=== PATIENT | female | born 1985 | race Caucasian/White ===

== ENCOUNTER 2018-05-29 11:15 | Outpatient (RCR) | payer OTHER, SELFPAY ==
--- NOTE | 2018-05-10 14:00 | PT.OIE ---
Current Diagnoses Other specified disorders of muscle (05/10/18) Past Surgical History Status post appendectomy Provider Visit Care Team Role Provider Type Kate aGrcia MD Attending Provider Physician Primary Care Provider Specialty: Family Practice Address: [address] [place] [address], [facility] Email: [email or web address] Physical Therapy Initial Evaluation PT-OP-A Visit Information Start: 05/08/18 15:58 Freq: Status: Active Protocol: Document 05/10/18 09:01 LRN (Rec: 05/10/18 09:49 LRN [id number]) Out-Patient Physical Therapy Visit Information Visit Information Visit Type Initial Evaluation Visit Start Time 09:01 Visit Stop Time 10:01 Total Visit Minutes 60 Visit Number 1 Number of TERMINAL SUPERVISOR Visits 0 Evaluation Information Evaluation Date 05/10/18 PT-OP-B Current Condition Start: 05/08/18 15:58 Freq: Status: Active Protocol: Document 05/10/18 09:01 LRN (Rec: 05/10/18 09:49 LRN [id number]) Current Condition History of Current Condition Onset Date 1 yr ago Current Complaints Feeling like things are not in place History of Current Condition After childbearing of 4th child, patient noticed tampons would not stay in place and would change positions. Prior Treatments and Tests None Developmental History Developmental History Pt has given to 4 children, ages 9, 7, 5, 2. First child was delivered C- section and remaining 3 delivered vaginally. Last child weighed 9# 1oz. She reports no tearing but she had a difficult labor with a lot of pushing. Treatment Goals Patient/Caregiver Goals Goal is to be able to get a lift of the pelvic floor, and to put things back into place. Prior Functional Status Baseline Function- ADL's Independent Baseline Function- Mobility Independent Current Functional Impairments (Reported) Functional Limitations- ADL's None Personal Factors Other Personal Factors That May Effect Pt is a mother of four Therapy/Recovery children. PT-OP-C Subjective Start: 05/08/18 15:58 Freq: Status: Active Protocol: Document 05/10/18 09:01 LRN (Rec: 05/10/18 10:13 LRN [id number]) Patient Questionnaires Pelvic Pain and Urgency/Frequency Patient Symptom Scale Pelvic Pain Score 8 PT-OP-I Pelvic Floor Start: 05/08/18 15:58 Freq: Status: Active Protocol: Document 05/10/18 09:01 LRN (Rec: 05/10/18 10:13 LRN [id number]) Pelvic Floor Assessment Urine Pelvic Floor Surgery No Urinary Symptoms Falling Out Feeling/Heavy Pain Bowel Bowel Surgery No Pelvic Clock Pelvic Clock 12-3 Tenderness Pelvic Clock 3-6 Tenderness Pelvic Clock 6-9 Atrophy Pelvic Clock 9-12 Atrophy Pelvic Clock Other Tender at left Transverse Perineal body. Prolapse Urethrocele Grade 2 Rectocele Grade 2 Prolapse Comments Evaluated in supine Perineal Descent Resting Present Contraction Ability Voluntary Contraction Weak Manual Muscle Testing Left 2 Manual Muscle Testing Right 0 Manual Muscle Testing Anterior 2 Manual Muscle Testing Posterior 2 Muscle Endurance (Seconds) 6 Number of Quick Contractions In 10 2 Seconds Comments Pelvic Floor Comments Superficial sphincter: Contraction felt on the Left and anterior. Deep PF muscles: Weak contraction felt on left and posterior. PT-OP-J Posture/Palpation/Skin Start: 05/08/18 15:58 Freq: Status: Active Protocol: Document 05/10/18 09:01 LRN (Rec: 05/10/18 10:13 LRN [id number]) Posture Evaluation Position Standing Evaluation View All positions Head/C-Spine Posture Neutral Position T-Spine Posture Neutral L-Spine Posture Increased Lordosis Shifted Left Shoulder Posture (L) Elevated Scapula Posture (L) Retracted Pelvis Posture Anteriorly Tilted (R) Iliac Crest Superior (L) Iliac Crest Inferior (R) PSIS Inferior Knee Posture (L) Genu Varus (R) Genu Varus Ankle/Foot Posture (L) Neutral (R) Neutral Foot Arch (L) Medium Arch (R) Medium Arch Comments Posture Comments Umbilicus shifted Right. Decreased spinal movement with Sidebending right. Palpation Assessment Location Abdomen Palpation Location Lower quadrant Palpation Details Decreased soft tissue mobility on the right with L glide and CW direction. Umbilicus shifted Right with fascial tightness from Umbilicus to anterior hip joint. PT-OP-K Range of Motion Start: 05/08/18 15:58 Freq: Status: Active Protocol: Document 05/10/18 09:01 LRN (Rec: 05/10/18 10:13 LRN [id number]) Lumbar Spine Range of Motion Lumbar Spine Active Percentage Flexion 50 Extension 100 Lateral Flexion Left 100 Lateral Flexion Right 75 Comments Decreased spinal mobility with Sidebend. Soft tissue tightness with Forward bend. Hip Goniometric Range of Motion Hip Measured in Degrees Right Passive Testing Position Supine Straight Leg Raise 85 Abduction 33 Internal Rotation 35 External Rotation 65 Left Passive Testing Position Supine Straight Leg Raise 80 Abduction 42 Internal Rotation 40 External Rotation 50 PT-OP-M Strength Start: 05/08/18 15:58 Freq: Status: Active Protocol: Document 05/10/18 09:01 LRN (Rec: 05/10/18 10:13 LRN [id number]) Hip Strength Hip Manual Muscle Testing Right Adduction 3- Fair- Comments 5/5 except hip AD. Left Adduction 3+ Fair+ Comments 5/5 except hip AD PT-OP-Q Treatments Start: 05/08/18 15:58 Freq: Status: Active Protocol: Document 05/10/18 09:01 LRN (Rec: 05/10/18 10:13 LRN [id number]) Self-Care/Home Management Treatment Education Patient Education Home Exercise Program Other Education Educated pt in anatomy of PF. Activities Self-Care/Home Management Activities HEP reviewed and issued for Eve. PT-OP-T Assessment and Plan Start: 05/08/18 15:58 Freq: Status: Active Protocol: Document 05/10/18 09:01 LRN (Rec: 05/10/18 10:13 LRN [id number]) Physical Therapy Assessment Rehab Potential Rehabilitation Potential Good Evaluation Complexity Number of Personal Factors/Comorbidities 1-2 Number of Body Systems Impaired 3 Clinical Presentation at Evaluation Evolving Impairments Impairments Pain Posture ROM Soft Tissue Mobility Strength Other Concerns Age Related Concerns Mother of 4 children Barriers to Rehabilitation Mother of 4 children Goals Five Impairment Soft tissue dysfunction with decreased hip mobility and strength Short Term Goal (STG) Pt will demonstrate improved symmetry of motion and strength of the hips to improve pelvic stability and pelvic floor strength. STG Duration 07/02/18 Four Impairment Mechanical dysfunction of the pelvis and lumbar spine Longterm Goal (LTG) Pt will demonstrate normal positioning of the pelvis and improved mobility of the lumbar spine for R SB with a decrease in pelvic pain complaints. Three Impairment Poor patient awareness of a proper PF contraction Short Term Goal (STG) Pt will be able to identify a proper PF muscle contraction without use of E-Stim. STG Duration 05/25/18 Longterm Goal (LTG) Improve PF strength no less than 3/5. LTG Duration 07/13/18 Two Impairment PF weakness R>L Short Term Goal (STG) Improve pt awareness of PF strengthening and set pt up on home EStim unit if pt agreeable. STG Duration 05/25/18 Field Consultant Goal (LTG) Pt will demonstrate improved PF strength per EMG biofeedback with pt able to maintain proper positioning of tampon when using. LTG Duration 07/13/18 One Impairment Lacks appropriate HEP Field Consultant Goal (LTG) Pt will be independent with self care and HEP. LTG Duration 07/13/18 Assessment Summary Assessment Pt presents with mechanical and soft tissue dysfunction of the lumbar and pelvic region with possible SIJ dysfunction and pelvic pain due to soft tissue asymmetry and core/ pelvic weakness. The pt has asymmetrical weakness of the pelvic floor and core causing pelvic instability. The pt will benefit from skilled physical therapy to improve pelvic and core stability and to improve symmetry of hip and lumbar mobility. The pt's rehabilitation might go beyond 8 weeks due to difficulty with scheduling around her family needs. Treatments will start at 2x/week to address soft tissue and mechanical dysfunctions, then decrease to once a week, giving the pt time to exercise and progress with PF strengthening with home exercises. The pt may benefit from use of a home E- Stim unit for PF strengthening if she finds it helpful to improve her awareness of performing a PF muscle contraction. Physical Therapy Plan Frequency and Duration Frequency of Treatment 2x/Week Plan of Care Start Date 05/10/18 Plan of Care End Date 07/13/18 Therapeutic Interventions Therapeutic Interventions Home Exercise Program Manual Therapy Neuromuscular Re-education Self-Care/Home Management Soft Tissue Mobilization Therapeutic Exercises Modalities Biofeedback Cold Pack/Ice Massage Hot Packs Next Visit Focus/Plan Next Note Type Treatment Note Next Visit Plan Assess per EMG biofeedback and E-Stim for training of awareness of proper PF contractions. JMT of pelvis as needed, STM to lower abdomen (bladder positioning) and transverse perineum to decreased pain. End with cryotherapy to abdomen if needed during E-Stim PF training.
--- NOTE | 2018-05-11 16:23 | PT.OIE ---
Current Diagnoses Other specified disorders of muscle (05/10/18) Past Surgical History Status post appendectomy Provider Visit Care Team Role Provider Type Kate Garcia MD Attending Provider Physician Primary Care Provider Specialty: Family Practice Address: [address] [place] [address], [facility] Email: [email or web address] Physical Therapy Initial Evaluation PT-OP-A Visit Information Start: 05/08/18 15:58 Freq: Status: Active Protocol: Document 05/10/18 09:01 LRN (Rec: 05/10/18 09:49 LRN [id number]) Out-Patient Physical Therapy Visit Information Visit Information Visit Type Initial Evaluation Visit Start Time 09:01 Visit Stop Time 10:01 Total Visit Minutes 60 Visit Number 1 Number of SAUSAGE SMOKER Visits 0 Evaluation Information Evaluation Date 05/10/18 PT-OP-B Current Condition Start: 05/08/18 15:58 Freq: Status: Active Protocol: Document 05/10/18 09:01 LRN (Rec: 05/10/18 09:49 LRN [id number]) Current Condition History of Current Condition Onset Date 1 yr ago Current Complaints Feeling like things are not in place History of Current Condition After childbearing of 4th child, patient noticed tampons would not stay in place and would change positions. Prior Treatments and Tests None Developmental History Developmental History Pt has given to 4 children, ages 9, 7, 5, 2. First child was delivered C- section and remaining 3 delivered vaginally. Last child weighed 9# 1oz. She reports no tearing but she had a difficult labor with a lot of pushing. Treatment Goals Patient/Caregiver Goals Goal is to be able to get a lift of the pelvic floor, and to put things back into place. Prior Functional Status Baseline Function- ADL's Independent Baseline Function- Mobility Independent Current Functional Impairments (Reported) Functional Limitations- ADL's None Personal Factors Other Personal Factors That May Effect Pt is a mother of four Therapy/Recovery children. PT-OP-C Subjective Start: 05/08/18 15:58 Freq: Status: Active Protocol: Document 05/10/18 09:01 LRN (Rec: 05/10/18 10:13 LRN [id number]) Patient Questionnaires Pelvic Pain and Urgency/Frequency Patient Symptom Scale Pelvic Pain Score 8 PT-OP-I Pelvic Floor Start: 05/08/18 15:58 Freq: Status: Active Protocol: Document 05/10/18 09:01 LRN (Rec: 05/10/18 10:13 LRN [id number]) Pelvic Floor Assessment Urine Pelvic Floor Surgery No Urinary Symptoms Falling Out Feeling/Heavy Pain Bowel Bowel Surgery No Pelvic Clock Pelvic Clock 12-3 Tenderness Pelvic Clock 3-6 Tenderness Pelvic Clock 6-9 Atrophy Pelvic Clock 9-12 Atrophy Pelvic Clock Other Tender at left Transverse Perineal body. Prolapse Urethrocele Grade 2 Rectocele Grade 2 Prolapse Comments Evaluated in supine Perineal Descent Resting Present Contraction Ability Voluntary Contraction Weak Manual Muscle Testing Left 2 Manual Muscle Testing Right 0 Manual Muscle Testing Anterior 2 Manual Muscle Testing Posterior 2 Muscle Endurance (Seconds) 6 Number of Quick Contractions In 10 2 Seconds Comments Pelvic Floor Comments Superficial sphincter: Contraction felt on the Left and anterior. Deep PF muscles: Weak contraction felt on left and posterior. PT-OP-J Posture/Palpation/Skin Start: 05/08/18 15:58 Freq: Status: Active Protocol: Document 05/10/18 09:01 LRN (Rec: 05/10/18 10:13 LRN [id number]) Posture Evaluation Position Standing Evaluation View All positions Head/C-Spine Posture Neutral Position T-Spine Posture Neutral L-Spine Posture Increased Lordosis Shifted Left Shoulder Posture (L) Elevated Scapula Posture (L) Retracted Pelvis Posture Anteriorly Tilted (R) Iliac Crest Superior (L) Iliac Crest Inferior (R) PSIS Inferior Knee Posture (L) Genu Varus (R) Genu Varus Ankle/Foot Posture (L) Neutral (R) Neutral Foot Arch (L) Medium Arch (R) Medium Arch Comments Posture Comments Umbilicus shifted Right. Decreased spinal movement with Sidebending right. Palpation Assessment Location Abdomen Palpation Location Lower quadrant Palpation Details Decreased soft tissue mobility on the right with L glide and CW direction. Umbilicus shifted Right with fascial tightness from Umbilicus to anterior hip joint. PT-OP-K Range of Motion Start: 05/08/18 15:58 Freq: Status: Active Protocol: Document 05/10/18 09:01 LRN (Rec: 05/10/18 10:13 LRN [id number]) Lumbar Spine Range of Motion Lumbar Spine Active Percentage Flexion 50 Extension 100 Lateral Flexion Left 100 Lateral Flexion Right 75 Comments Decreased spinal mobility with Sidebend. Soft tissue tightness with Forward bend. Hip Goniometric Range of Motion Hip Measured in Degrees Right Passive Testing Position Supine Straight Leg Raise 85 Abduction 33 Internal Rotation 35 External Rotation 65 Left Passive Testing Position Supine Straight Leg Raise 80 Abduction 42 Internal Rotation 40 External Rotation 50 PT-OP-M Strength Start: 05/08/18 15:58 Freq: Status: Active Protocol: Document 05/10/18 09:01 LRN (Rec: 05/10/18 10:13 LRN [id number]) Hip Strength Hip Manual Muscle Testing Right Adduction 3- Fair- Comments 5/5 except hip AD. Left Adduction 3+ Fair+ Comments 5/5 except hip AD PT-OP-Q Treatments Start: 05/08/18 15:58 Freq: Status: Active Protocol: Document 05/10/18 09:01 LRN (Rec: 05/10/18 10:13 LRN [id number]) Self-Care/Home Management Treatment Education Patient Education Home Exercise Program Other Education Educated pt in anatomy of PF. Activities Self-Care/Home Management Activities HEP reviewed and issued for Eve. PT-OP-T Assessment and Plan Start: 05/08/18 15:58 Freq: Status: Active Protocol: Document 05/10/18 09:01 LRN (Rec: 05/10/18 10:13 LRN [id number]) Physical Therapy Assessment Rehab Potential Rehabilitation Potential Good Evaluation Complexity Number of Personal Factors/Comorbidities 1-2 Number of Body Systems Impaired 3 Clinical Presentation at Evaluation Evolving Impairments Impairments Pain Posture ROM Soft Tissue Mobility Strength Other Concerns Age Related Concerns Mother of 4 children Barriers to Rehabilitation Mother of 4 children Goals Five Impairment Soft tissue dysfunction with decreased hip mobility and strength Short Term Goal (STG) Pt will demonstrate improved symmetry of motion and strength of the hips to improve pelvic stability and pelvic floor strength. STG Duration 07/02/18 Four Impairment Mechanical dysfunction of the pelvis and lumbar spine Mcfp Goal (LTG) Pt will demonstrate normal positioning of the pelvis and improved mobility of the lumbar spine for R SB with a decrease in pelvic pain complaints. Three Impairment Poor patient awareness of a proper PF contraction Short Term Goal (STG) Pt will be able to identify a proper PF muscle contraction without use of E-Stim. STG Duration 05/25/18 Mcfp Goal (LTG) Improve PF strength no less than 3/5. LTG Duration 07/13/18 Two Impairment PF weakness R>L Short Term Goal (STG) Improve pt awareness of PF strengthening and set pt up on home EStim unit if pt agreeable. STG Duration 05/25/18 Specialty Cook Goal (LTG) Pt will demonstrate improved PF strength per EMG biofeedback with pt able to maintain proper positioning of tampon when using. LTG Duration 07/13/18 One Impairment Lacks appropriate HEP Specialty Cook Goal (LTG) Pt will be independent with self care and HEP. LTG Duration 07/13/18 Assessment Summary Assessment Pt presents with mechanical and soft tissue dysfunction of the lumbar and pelvic region with possible SIJ dysfunction and pelvic pain due to soft tissue asymmetry and core/ pelvic weakness. The pt has asymmetrical weakness of the pelvic floor and core causing pelvic instability. The pt will benefit from skilled physical therapy to improve pelvic and core stability and to improve symmetry of hip and lumbar mobility. The pt's rehabilitation might go beyond 8 weeks due to difficulty with scheduling around her family needs. Treatments will start at 2x/week to address soft tissue and mechanical dysfunctions, then decrease to once a week, giving the pt time to exercise and progress with PF strengthening with home exercises. The pt may benefit from use of a home E- Stim unit for PF strengthening if she finds it helpful to improve her awareness of performing a PF muscle contraction. Physical Therapy Plan Frequency and Duration Frequency of Treatment 2x/Week Plan of Care Start Date 05/10/18 Plan of Care End Date 07/13/18 Therapeutic Interventions Therapeutic Interventions Home Exercise Program Manual Therapy Neuromuscular Re-education Self-Care/Home Management Soft Tissue Mobilization Therapeutic Exercises Modalities Biofeedback Cold Pack/Ice Massage Hot Packs Next Visit Focus/Plan Next Note Type Treatment Note Next Visit Plan Assess per EMG biofeedback and E-Stim for training of awareness of proper PF contractions. JMT of pelvis as needed, STM to lower abdomen (bladder positioning) and transverse perineum to decreased pain. End with cryotherapy to abdomen if needed during E-Stim PF training.
--- NOTE | 2018-05-22 15:16 | PT.OTN ---
Current Diagnoses Other specified disorders of muscle (05/22/18) Physical Therapy Treatment Note PT-OP-A Visit Information Start: 05/08/18 15:58 Freq: Status: Active Protocol: Document 05/22/18 09:52 LRN (Rec: 05/22/18 10:29 LRN [id number]) Out-Patient Physical Therapy Visit Information Visit Information Visit Type Treatment Note Visit Start Time 09:52 Visit Stop Time 10:30 Total Visit Minutes 38 Visit Number 2 Number of SECURITIES ATTORNEY Visits 0 Evaluation Information Evaluation Date 05/10/18 PT-OP-B Current Condition Start: 05/08/18 15:58 Freq: Status: Active Protocol: Document 05/10/18 09:01 LRN (Rec: 05/10/18 09:49 LRN [id number]) Current Condition History of Current Condition Onset Date 1 yr ago Current Complaints Feeling like things are not in place History of Current Condition After childbearing of 4th child, patient noticed tampons would not stay in place and would change positions. Prior Treatments and Tests None Developmental History Developmental History Pt has given to 4 children, ages 9, 7, 5, 2. First child was delivered C- section and remaining 3 delivered vaginally. Last child weighed 9# 1oz. She reports no tearing but she had a difficult labor with a lot of pushing. Treatment Goals Patient/Caregiver Goals Goal is to be able to get a lift of the pelvic floor, and to put things back into place. Prior Functional Status Baseline Function- ADL's Independent Baseline Function- Mobility Independent Current Functional Impairments (Reported) Functional Limitations- ADL's None Personal Factors Other Personal Factors That May Effect Pt is a mother of four Therapy/Recovery children. PT-OP-C Subjective Start: 05/08/18 15:58 Freq: Status: Active Protocol: Document 05/10/18 09:01 LRN (Rec: 05/10/18 10:13 LRN [id number]) Patient Questionnaires Pelvic Pain and Urgency/Frequency Patient Symptom Scale Pelvic Pain Score 8 PT-OP-I Pelvic Floor Start: 05/08/18 15:58 Freq: Status: Active Protocol: Document 05/10/18 09:01 LRN (Rec: 05/10/18 10:13 LRN [id number]) Pelvic Floor Assessment Urine Pelvic Floor Surgery No Urinary Symptoms Falling Out Feeling/Heavy Pain Bowel Bowel Surgery No Pelvic Clock Pelvic Clock 12-3 Tenderness Pelvic Clock 3-6 Tenderness Pelvic Clock 6-9 Atrophy Pelvic Clock 9-12 Atrophy Pelvic Clock Other Tender at left Transverse Perineal body. Prolapse Urethrocele Grade 2 Rectocele Grade 2 Prolapse Comments Evaluated in supine Perineal Descent Resting Present Contraction Ability Voluntary Contraction Weak Manual Muscle Testing Left 2 Manual Muscle Testing Right 0 Manual Muscle Testing Anterior 2 Manual Muscle Testing Posterior 2 Muscle Endurance (Seconds) 6 Number of Quick Contractions In 10 2 Seconds Comments Pelvic Floor Comments Superficial sphincter: Contraction felt on the Left and anterior. Deep PF muscles: Weak contraction felt on left and posterior. PT-OP-J Posture/Palpation/Skin Start: 05/08/18 15:58 Freq: Status: Active Protocol: Document 05/10/18 09:01 LRN (Rec: 05/10/18 10:13 LRN [id number]) Posture Evaluation Position Standing Evaluation View All positions Head/C-Spine Posture Neutral Position T-Spine Posture Neutral L-Spine Posture Increased Lordosis Shifted Left Shoulder Posture (L) Elevated Scapula Posture (L) Retracted Pelvis Posture Anteriorly Tilted (R) Iliac Crest Superior (L) Iliac Crest Inferior (R) PSIS Inferior Knee Posture (L) Genu Varus (R) Genu Varus Ankle/Foot Posture (L) Neutral (R) Neutral Foot Arch (L) Medium Arch (R) Medium Arch Comments Posture Comments Umbilicus shifted Right. Decreased spinal movement with Sidebending right. Palpation Assessment Location Abdomen Palpation Location Lower quadrant Palpation Details Decreased soft tissue mobility on the right with L glide and CW direction. Umbilicus shifted Right with fascial tightness from Umbilicus to anterior hip joint. PT-OP-K Range of Motion Start: 05/08/18 15:58 Freq: Status: Active Protocol: Document 05/10/18 09:01 LRN (Rec: 05/10/18 10:13 LRN [id number]) Lumbar Spine Range of Motion Lumbar Spine Active Percentage Flexion 50 Extension 100 Lateral Flexion Left 100 Lateral Flexion Right 75 Comments Decreased spinal mobility with Sidebend. Soft tissue tightness with Forward bend. Hip Goniometric Range of Motion Hip Measured in Degrees Right Passive Testing Position Supine Straight Leg Raise 85 Abduction 33 Internal Rotation 35 External Rotation 65 Left Passive Testing Position Supine Straight Leg Raise 80 Abduction 42 Internal Rotation 40 External Rotation 50 PT-OP-M Strength Start: 09/11/18 15:58 Freq: Status: Active Protocol: Document 05/10/18 09:01 LRN (Rec: 05/10/18 10:13 LRN [id number]) Hip Strength Hip Manual Muscle Testing Right Adduction 3- Fair- Comments 5/5 except hip AD. Left Adduction 3+ Fair+ Comments 5/5 except hip AD PT-OP-Q Treatments Start: 05/08/18 15:58 Freq: Status: Active Protocol: Document 05/22/18 09:52 LRN (Rec: 05/22/18 10:29 LRN [id number]) Therapeutic Exercises Supine Exercises Bridging on wedge Supine Exercise Name With Computer Biofeedback Equipment Used Pillow Roll in/outs Side bilateral Comments Needed training and needs further training. Neuro Re-Education Treatment Other Activities STM-10 Details PF awareness Reps/Duration 25 Comments Intensity at 15, 180 deg's rotated in order to get feeling/stim on L side. Self-Care/Home Management Treatment Education Patient Education Home Exercise Program Other Education Educated in PF stability with components that provide stability. Activities Self-Care/Home Management Activities HEP: Reviewed and issued: Roll in/outs PT-OP-T Assessment and Plan Start: 05/08/18 15:58 Freq: Status: Active Protocol: Document 05/22/18 09:52 LRN (Rec: 05/22/18 10:29 LRN [id number]) Physical Therapy Assessment Impairments Impairments Pain Posture ROM Soft Tissue Mobility Strength Other Concerns Age Related Concerns Mother of 4 children Barriers to Rehabilitation Mother of 4 children Goals Five Impairment Soft tissue dysfunction with decreased hip mobility and strength Short Term Goal (STG) Pt will demonstrate improved symmetry of motion and strength of the hips to improve pelvic stability and pelvic floor strength. STG Duration 07/02/18 Four Impairment Mechanical dysfunction of the pelvis and lumbar spine Refiner Operator Goal (LTG) Pt will demonstrate normal positioning of the pelvis and improved mobility of the lumbar spine for R SB with a decrease in pelvic pain complaints. LTG Duration 05/22/18: Noted normal pelvic positioning. Three Impairment Poor patient awareness of a proper PF contraction Short Term Goal (STG) Pt will be able to identify a proper PF muscle contraction without use of E-Stim. STG Duration 05/25/18 (05/22/18 GOAL MET) Senior Care Goal (LTG) Improve PF strength no less than 3/5. LTG Duration 07/13/18 Two Impairment PF weakness R>L Short Term Goal (STG) Improve pt awareness of PF strengthening and set pt up on home EStim unit if pt agreeable. STG Duration 05/25/18 Senior Care Goal (LTG) Pt will demonstrate improved PF strength per EMG biofeedback with pt able to maintain proper positioning of tampon when using. LTG Duration 07/13/18 One Impairment Lacks appropriate HEP Refiner Operator Goal (LTG) Pt will be independent with self care and HEP. LTG Duration 07/13/18 Progress Towards Goals Progress Towards Goals Progressing Toward Goals Assessment Summary Assessment Pt PF is very weak and vaginal canal may be quite extended. After much effort pt was able to gain sensation on L side of PF clock and awareness of a PF contraction with both sides of the PF clock when performing a PF contraction with E-Stim. Pt with mechanical and soft tissue dysfunction of the lumbar and pelvic region. She appears symmetrical in her pelvis today and the pt has not had PF pain for the past week because pt not menstrating. Treatments will start at 2x/ week to address soft tissue and mechanical dysfunctions, then decrease to once a week, giving the pt time to exercise and progress with PF strengthening with home exercises. The pt may benefit from use of a home E-Stim unit; therefore issue rental information next visit. Physical Therapy Plan Frequency and Duration Frequency of Treatment 2x/Week Plan of Care Start Date 05/10/18 Plan of Care End Date 07/13/18 Therapeutic Interventions Therapeutic Interventions Home Exercise Program Manual Therapy Neuromuscular Re-education Self-Care/Home Management Soft Tissue Mobilization Therapeutic Exercises Modalities Biofeedback Cold Pack/Ice Massage Hot Packs Next Visit Focus/Plan Next Note Type Treatment Note Next Visit Plan Assess per EMG biofeedback. STM to lower abdomen (bladder positioning) and transverse perineum to decreased pain. E -Stim for training of awareness of proper PF contractions if needed. JMT of pelvis as needed. End with cryotherapy to abdomen if needed during E-Stim PF training.
--- NOTE | 2018-05-29 14:12 | PT.OTN ---
Current Diagnoses Other specified disorders of muscle (05/29/18) Physical Therapy Treatment Note PT-OP-A Visit Information Start: 05/08/18 15:58 Freq: Status: Active Protocol: Document 05/29/18 11:25 LRN (Rec: 05/29/18 12:22 LRN [id number]) Out-Patient Physical Therapy Visit Information Visit Information Visit Type Treatment Note Visit Start Time 11:25 Visit Stop Time 12:20 Total Visit Minutes 55 Visit Number 3 Number of MOTOR VEHICLE COMPLIANCE ANALYST Visits 0 Evaluation Information Evaluation Date 05/10/18 PT-OP-B Current Condition Start: 05/08/18 15:58 Freq: Status: Active Protocol: Document 05/10/18 09:01 LRN (Rec: 05/10/18 09:49 LRN [id number]) Current Condition History of Current Condition Onset Date 1 yr ago Current Complaints Feeling like things are not in place History of Current Condition After childbearing of 4th child, patient noticed tampons would not stay in place and would change positions. Prior Treatments and Tests None Developmental History Developmental History Pt has given to 4 children, ages 9, 7, 5, 2. First child was delivered C- section and remaining 3 delivered vaginally. Last child weighed 9# 1oz. She reports no tearing but she had a difficult labor with a lot of pushing. Treatment Goals Patient/Caregiver Goals Goal is to be able to get a lift of the pelvic floor, and to put things back into place. Prior Functional Status Baseline Function- ADL's Independent Baseline Function- Mobility Independent Current Functional Impairments (Reported) Functional Limitations- ADL's None Personal Factors Other Personal Factors That May Effect Pt is a mother of four Therapy/Recovery children. PT-OP-C Subjective Start: 05/08/18 15:58 Freq: Status: Active Protocol: Document 05/29/18 11:25 LRN (Rec: 05/29/18 13:54 LRN [id number]) OP-PT Subjective Patient Comments Patient Comments Pt menstrating; therefore did not bring her electrode. States she is having less PF pain. Patient Reported Progress Improving PT-OP-I Pelvic Floor Start: 05/08/18 15:58 Freq: Status: Active Protocol: Document 05/10/18 09:01 LRN (Rec: 05/10/18 10:13 LRN [id number]) Pelvic Floor Assessment Urine Pelvic Floor Surgery No Urinary Symptoms Falling Out Feeling/Heavy Pain Bowel Bowel Surgery No Pelvic Clock Pelvic Clock 12-3 Tenderness Pelvic Clock 3-6 Tenderness Pelvic Clock 6-9 Atrophy Pelvic Clock 9-12 Atrophy Pelvic Clock Other Tender at left Transverse Perineal body. Prolapse Urethrocele Grade 2 Rectocele Grade 2 Prolapse Comments Evaluated in supine Perineal Descent Resting Present Contraction Ability Voluntary Contraction Weak Manual Muscle Testing Left 2 Manual Muscle Testing Right 0 Manual Muscle Testing Anterior 2 Manual Muscle Testing Posterior 2 Muscle Endurance (Seconds) 6 Number of Quick Contractions In 10 2 Seconds Comments Pelvic Floor Comments Superficial sphincter: Contraction felt on the Left and anterior. Deep PF muscles: Weak contraction felt on left and posterior. PT-OP-J Posture/Palpation/Skin Start: 05/08/18 15:58 Freq: Status: Active Protocol: Document 05/10/18 09:01 LRN (Rec: 05/10/18 10:13 LRN [id number]) Posture Evaluation Position Standing Evaluation View All positions Head/C-Spine Posture Neutral Position T-Spine Posture Neutral L-Spine Posture Increased Lordosis Shifted Left Shoulder Posture (L) Elevated Scapula Posture (L) Retracted Pelvis Posture Anteriorly Tilted (R) Iliac Crest Superior (L) Iliac Crest Inferior (R) PSIS Inferior Knee Posture (L) Genu Varus (R) Genu Varus Ankle/Foot Posture (L) Neutral (R) Neutral Foot Arch (L) Medium Arch (R) Medium Arch Comments Posture Comments Umbilicus shifted Right. Decreased spinal movement with Sidebending right. Palpation Assessment Location Abdomen Palpation Location Lower quadrant Palpation Details Decreased soft tissue mobility on the right with L glide and CW direction. Umbilicus shifted Right with fascial tightness from Umbilicus to anterior hip joint. PT-OP-K Range of Motion Start: 05/08/18 15:58 Freq: Status: Active Protocol: Document 05/10/18 09:01 LRN (Rec: 05/10/18 10:13 LRN [id number]) Lumbar Spine Range of Motion Lumbar Spine Active Percentage Flexion 50 Extension 100 Lateral Flexion Left 100 Lateral Flexion Right 75 Comments Decreased spinal mobility with Sidebend. Soft tissue tightness with Forward bend. Hip Goniometric Range of Motion Hip Measured in Degrees Right Passive Testing Position Supine Straight Leg Raise 85 Abduction 33 Internal Rotation 35 External Rotation 65 Left Passive Testing Position Supine Straight Leg Raise 80 Abduction 42 Internal Rotation 40 External Rotation 50 PT-OP-M Strength Start: 05/08/18 15:58 Freq: Status: Active Protocol: Document 05/10/18 09:01 LRN (Rec: 05/10/18 10:13 LRN [id number]) Hip Strength Hip Manual Muscle Testing Right Adduction 3- Fair- Comments 5/5 except hip AD. Left Adduction 3+ Fair+ Comments 5/5 except hip AD PT-OP-Q Treatments Start: 05/08/18 15:58 Freq: Status: Active Protocol: Document 05/29/18 11:25 LRN (Rec: 05/29/18 12:22 LRN [id number]) Therapeutic Exercises Supine Exercises Hands on Knees Push Supine Exercise Name On Wedge Side bilateral Resistance Self fingertip resist Equipment Used Wedge Reps/Minutes 10x Comments Holding as long as TA is held (1-2 sec's) Heel Slides Bilaterally Supine Exercise Name Core stabilization with heel slides Side bilateral Reps/Minutes 10x TA strengthening Supine Exercise Name Isometric TA tightening supine Reps/Minutes 10x Comments Hold 5-10 sec's Kegel Supine Exercise Name On Wedge: LE roll in/out with Deep breathing Equipment Used Wedge Reps/Minutes 12x, resting every other rep Roll in/outs Side bilateral Equipment Used Wedge Reps/Minutes 10x Sidelying Exercises Reverse Clamshell Sidelying Exercise Name With Kegel Side bilateral Reps/Minutes 10' Comments Hold with 2 reps, rest with 3 reps. Xtra time for training . Clamshell Sidelying Exercise Name With Kegel Reps/Minutes 6' Comments Hold with 2 reps, rest with 3 reps Manual Therapy Treatment Joint Mobilizations R innominate Inflare correction Joint R and L SIJ. Body Position Supine Comments MET to correct L innominate outflare and R innominate inflare. Self-Care/Home Management Treatment Education Patient Education Home Exercise Program Activities Self-Care/Home Management Activities HEP: reviewed and issued: 1) TA tightening, 2) TA tightening-Zahcary heel slides, 3) Zachary hands and knees push 4) Clamshell 5) Reverse Clamshell 6) Self correction for R innominate inflare. PT-OP-T Assessment and Plan Start: 05/08/18 15:58 Freq: Status: Active Protocol: Document 05/29/18 11:25 LRN (Rec: 05/29/18 12:22 LRN [id number]) Physical Therapy Assessment Progress Towards Goals Progress Towards Goals Progressing Toward Goals Progress Comments PF pain reported is less. Assessment Summary Assessment Corrected pelvic obliquity by correcting R innominate inflare. Pt is weak with core and TA. Not able to maintain a TA contraction with isometric holding against a resistance. Much improved coordination of breathing and LE roll in/outs. Physical Therapy Plan Frequency and Duration Frequency of Treatment 2x/Week Plan of Care Start Date 05/10/18 Plan of Care End Date 07/13/18 Next Visit Focus/Plan Next Note Type Treatment Note Next Visit Plan Review prior HEP issued. STM to lower abdomen if needed, ( bladder positioning) and transverse perineum to decreased pain. Continue EMG biofeedback & E-Stim for training of awareness of proper PF contractions. JMT of pelvis as needed. End with cryotherapy to abdomen if needed during E-Stim PF training.
--- NOTE | 2018-10-09 13:45 | PT.OPDS ---
Current Diagnoses Other specified disorders of muscle (05/29/18) Provider Visit Care Team Role Provider Type Kate Garcia MD Attending Provider Physician Primary Care Provider Specialty: Family Practice Address: [address] [place] [address], [facility] Email: [email or web address] Visit Number Visit Number 3 Discharge Summary PT-OP-B Current Condition Start: 05/08/18 15:58 Freq: Status: Active Protocol: Document 05/10/18 09:01 LRN (Rec: 05/10/18 09:49 LRN [id number]) Current Condition History of Current Condition Onset Date 1 yr ago Current Complaints Feeling like things are not in place History of Current Condition After childbearing of 4th child, patient noticed tampons would not stay in place and would change positions. Prior Treatments and Tests None Developmental History Developmental History Pt has given to 4 children, ages 9, 7, 5, 2. First child was delivered C- section and remaining 3 delivered vaginally. Last child weighed 9# 1oz. She reports no tearing but she had a difficult labor with a lot of pushing. Treatment Goals Patient/Caregiver Goals Goal is to be able to get a lift of the pelvic floor, and to put things back into place. Prior Functional Status Baseline Function- ADL's Independent Baseline Function- Mobility Independent Current Functional Impairments (Reported) Functional Limitations- ADL's None Personal Factors Other Personal Factors That May Effect Pt is a mother of four Therapy/Recovery children. PT-OP-T Assessment and Plan Start: 05/08/18 15:58 Freq: Status: Active Protocol: Document 10/09/18 13:37 LRN (Rec: 10/09/18 13:45 LRN [id number]) Physical Therapy Assessment Goals Five Impairment Soft tissue dysfunction with decreased hip mobility and strength Short Term Goal (STG) Pt will demonstrate improved symmetry of motion and strength of the hips to improve pelvic stability and pelvic floor strength. STG Duration 07/02/18 (Pt unavailable for final assessment) Four Impairment Mechanical dysfunction of the pelvis and lumbar spine Transportation Technician Goal (LTG) Pt will demonstrate normal positioning of the pelvis and improved mobility of the lumbar spine for R SB with a decrease in pelvic pain complaints. LTG Duration 05/22/18: (Goal Partially Met: Noted normal pelvic positioning). Three Impairment Poor patient awareness of a proper PF contraction Short Term Goal (STG) Pt will be able to identify a proper PF muscle contraction without use of E-Stim. STG Duration 05/25/18 (05/22/18 GOAL MET) Intermediate Goal (LTG) Improve PF strength no less than 3/5. LTG Duration 07/13/18 (Pt unavailable for final assessment) Two Impairment PF weakness R>L Short Term Goal (STG) Improve pt awareness of PF strengthening and set pt up on home EStim unit if pt agreeable. STG Duration 05/25/18 Intermediate Goal (LTG) Pt will demonstrate improved PF strength per EMG biofeedback with pt able to maintain proper positioning of tampon when using. LTG Duration 07/13/18 (Pt unavailable for final assessment) One Impairment Lacks appropriate HEP Transportation Technician Goal (LTG) Pt will be independent with self care and HEP. LTG Duration 07/13/18 (Goal Partially Met, pt was started on home exercises) Progress Towards Goals Progress Towards Goals Progressing Toward Goals Progress Comments PF pain reported is less. Assessment Summary Assessment Pt is being discharged from therapy due to lack of attendance. The pt was seen for 2 therapy sessions with the last visit on 05/29/2018. The pt was started on a home exercise program and presented with pelvic symmetry and decreased pain by her last visit. Pt was not available for final assessment of PF and hip strength, lumbar and hip mobility. The pt would have benefitted from continuation of therapy for pain relief and strengthening of her PF. Physical Therapy Plan Discharge Physical Therapy Discharge Reasons No Longer Attending PT Discharge Comments Thank you for your referral.
== END 2018-10-17 12:19 ==
LOC: PHYS 11:15
PROVIDERS: PCP Family Medicine; Visit Provider Family Medicine
DX: M62.89 Other specified disorders of muscle (principal)
CPT/HCPCS: 97110; 97112; 97140; 97161; 97535

== ENCOUNTER → 2018-12-31 09:25 | Outpatient (CLI) | payer OTHER, SELFPAY ==
--- NOTE | 2019-01-25 12:16 | P.HOLT.S_ITS ---
Assistant Refinery Operator Report Referral & Results Date Patient Seen: 12/31/18 Requesting provider: Kate Garcia Indication: Palpitations Duration of monitoring (days): 14 Diary information: There were 3 patient diary entries over 14 days associated with sinus rhythm and PVCs (within 45 seconds of entry) There were 10 patient triggered events associated with sinus rhythm, PACs, PVCs Data: Minimum heart rate identified was 40 beats per minute at 05:29 on 01/06/2019 Maximum heart rate was 185 beats per minute at 14:40 on 01/13/2019 Less than 1% identified beats rather ventricular supraventricular ectopic in origin The computer identified 1 run of SVT that does not appear to be SVT but rather artifact associated with a PAC Impression: 14 day equipment monitor phototypesetting showing rare PVCs and PACs. No clear correlation with patient's reported symptoms or triggered events any one specific dysrhythmia. Clinical correlation suggested
== END ==
PROVIDERS: PCP Family Medicine; Visit Provider Family Medicine
DX: R00.2 Palpitations (principal)
CPT/HCPCS: 0296T; 0298T

== ENCOUNTER → 2019-07-30 14:36 | Outpatient (CLI) | payer OTHER, SELFPAY ==
--- NOTE | 2019-07-30 | DI.MG.S_ITS ---
BILATERAL DIGITAL DIAGNOSTIC MAMMOGRAM 3D/2D: 07/30/2019 CLINICAL: Baseline exam. Lateral right breast pain. No prior exams were available for comparison. The tissue of both breasts is extremely dense, which lowers the sensitivity of mammography. There is a square marker overlying the skin of the lateral right breast at the center of the patient's indicated area of focal lateral right breast pain. There is underlying extremely dense fibroglandular tissue. No other underlying mass or abnormality is identified by mammography. No other significant masses, calcifications, or other findings are seen in either breast. IMPRESSION: INCOMPLETE: NEEDS ADDITIONAL IMAGING EVALUATION There is extremely dense fibroglandular tissue throughout the right breast, including the lateral right breast at site of patient's focal lateral right breast pain. No other mass or underlying abnormality is identified mammographically to correlate with the site of the patient's reported focal lateral right breast pain. Targeted diagnostic ultrasound recommended for further evaluation, which has been scheduled to be performed on 07/31/19 (next day). The patient is advised to monitor her breasts and to return sooner for reevaluation if she feels anything grow or change in her breasts. This exam was interpreted at Station ID: [id number]. NOTE: For mammograms, a report in lay terms will be sent to the patient. Approximately 15% of breast malignancies will not be visualized mammographically. In the management of a palpable breast mass, a negative mammogram must not discourage biopsy of a clinically suspicious lesion. Electronically Signed By: Candelario Batista M.D. ecl/:07/30/2019 15:21:33 letter sent: Additional Imaging Needed ACR BI-RADS Category 0: Incomplete [id number]
== END ==
PROVIDERS: PCP Family Medicine; Visit Provider Family Medicine
DX: R92.2 Inconclusive mammogram (principal); N64.4 Mastodynia
CPT/HCPCS: 77066; G0279

== ENCOUNTER → 2019-07-31 09:08 | Outpatient (CLI) | payer OTHER, SELFPAY ==
--- NOTE | 2019-07-31 09:10 | DI.US.S_ITS ---
ULTRASOUND OF RIGHT BREAST: 07/31/2019 CLINICAL: Focal right breast pain. Comparison is made to exam dated: 07/30/2019 [facility]. Real-time ultrasound of the right breast was performed. Fisher scale images of the real-time examination were reviewed. There is a 0.5 cm x 0.7 cm x 0.4 cm intraductal mass in the right breast at 9 o'clock in the retroareolar region. This mass is hypoechoic. Color flow imaging demonstrates that there is an adjacent vascularity. There are associated ductal prominence and dilatation. IMPRESSION: SUSPICIOUS OF MALIGNANCY The 0.5 cm x 0.7 cm x 0.4 cm intraductal mass in the right breast retroareolar region is suspicious of malignancy. An ultrasound guided biopsy is recommended. There is no sonographic abnormality seen in the right breast to correspond with the area of clinical concern, palpable abnormality, and pain in the middle-posterior depth in the upper outer quadrant, however, clinical followup is recommended for persistent symptoms. Findings and recommendations for biopsy were discussed with the patient by Dr. Batista. This exam was interpreted at Station ID: [id number]. Electronically Signed By: Dave Webster M.D. aty/:07/31/2019 10:43:03 letter sent: Biopsy Required Ultrasound BI-RADS: 4 Suspicious for malignancy
== END ==
PROVIDERS: PCP Family Medicine; Visit Provider Family Medicine
DX: R92.8 Other abnormal and inconclusive findings on diagnostic imaging of breast (principal); N64.4 Mastodynia; N63.15 Unspecified lump in the right breast, overlapping quadrants
CPT/HCPCS: 76642

== ENCOUNTER → 2019-09-16 12:17 | Outpatient (CLI) | payer SELFPAY ==
[2019-09-16 13:23] LABS: Appearance Urine UA CLEAR; Bilirubin Urine UA NEGATIVE (NEGATIVE); Color Urine UA YELLOW; Glucose Urine UA NEGATIVE (Negative); Ketones Urine UA NEGATIVE (NEGATIVE); Leukocyte Esterase Urine UA TRACE (NEGATIVE); Nitrite Urine UA NEGATIVE (Negative); Occult Blood Urine UA 2+ (Negative); Protein Urine UA NEGATIVE (Negative); Specific Gravity Urine UA 1.025 (1.000-1.035); Urobilinogen Urine UA 0.2 E.U./dL (0.2)
[2019-09-16 13:36] LABS: pH Urine UA 5.5 (4.5-8.0)
[2019-09-16 13:55] LABS: RBC Urine 1-5/HPF (0-5/HPF); WBC Urine 5-10/HPF (0-5/HPF)
[2019-09-16 13:56] LABS: Bacteria Urine Few (2-10); Culture Indicated Urine Specimen Cultured
== END ==
PROVIDERS: PCP Family Medicine; Visit Provider Family Medicine
DX: R30.0 Dysuria (principal); R35.0 Frequency of micturition; R39.15 Urgency of urination
CPT/HCPCS: 81001; 87077; 87086; 87186

== ENCOUNTER → 2020-09-29 16:51 | Outpatient (CLI) | payer SELFPAY ==
[2020-09-29 16:58] LABS: Bacteria Urine None Seen; WBC Urine None Seen (0-5/HPF)
[2020-09-29 18:35] LABS: Appearance Urine UA CLEAR; Bilirubin Urine UA NEGATIVE (NEGATIVE); Color Urine UA YELLOW; Glucose Urine UA NEGATIVE (Negative); Ketones Urine UA NEGATIVE (NEGATIVE); Leukocyte Esterase Urine UA NEGATIVE (NEGATIVE); Nitrite Urine UA NEGATIVE (Negative); Occult Blood Urine UA 1+ (Negative); Protein Urine UA NEGATIVE (Negative); Urobilinogen Urine UA 0.2 E.U./dL (0.2)
[2020-09-29 19:06] LABS: Culture Indicated Urine Cult Not Indicated; Mucus Urine 2+ (Negative); RBC Urine 0-1/HPF (0-5/HPF); Squamous Epithelial Cell Urine 1-5 /HPF (0-5/HPF); Transitional Epi Cells Urine 0-1/HPF (0-5/HPF)
== END ==
PROVIDERS: PCP Family Medicine; Referring Provider Family Medicine; Visit Provider Family Medicine
DX: M54.5 Low back pain (principal); R82.90 Unspecified abnormal findings in urine
CPT/HCPCS: 81001

== ENCOUNTER → 2022-01-18 14:54 | Outpatient (CLI) | payer OTHER, SELFPAY ==
--- NOTE | 2022-01-18 14:56 | DI.US.S_ITS ---
PROCEDURE: US ABDOMEN LIMITED INDICATIONS: RIGHT UPPER QUADRANT PAIN TECHNIQUE: Real-time focused scanning was performed of the abdomen, with image documentation. COMPARISON: None. FINDINGS: The liver is normal in size and demonstrates no focal lesions. The main portal vein demonstrates normal size and demonstrates normal appearing, hepatopetal flow. No findings of gallstones or sludge are seen. The gallbladder wall is not thickened, measuring 3 mm or less. No specific pericholecystic fluid is seen. The sonographic Hastings sign is negative. There is no biliary dilatation, the common bile duct measures 4 mm. No significant pancreatic abnormality is seen on these images. IMPRESSION: The gallbladder demonstrates a normal sonographic appearance. No biliary dilatation is seen. Dictated by: Maximo Ribera M.D. on 01/18/2022 at 15:51 Approved by: Maximo Ribera M.D. on 01/18/2022 at 15:52
== END ==
PROVIDERS: PCP Family Medicine; Referring Provider Family Medicine; Visit Provider Family Medicine
DX: R10.11 Right upper quadrant pain (principal)
CPT/HCPCS: 76705

== ENCOUNTER → 2022-07-01 07:11 | Outpatient (CLI) | payer OTHER, SELFPAY ==
--- NOTE | 2022-07-01 07:15 | DI.US.S_ITS ---
PROCEDURE: US ABDOMEN COMPLETE INDICATIONS: RUQ pain, discomfort when swallowing TECHNIQUE: Real-time scanning was performed of the abdominal and retroperitoneal organs, with image documentation. COMPARISON: [facility], US, US ABDOMEN LIMITED, 01/18/2022, 16:32. FINDINGS: Liver: Liver is normal in size and homogeneous in echotexture. Gallbladder: No findings of gallstones or sludge are seen. The gallbladder wall is not thickened, measuring 3 mm or less. No specific pericholecystic fluid is seen. The sonographic Hastings sign is negative. Biliary ducts: Intrahepatic bile ducts are non-dilated. Extrahepatic bile duct caliber measures 4 mm. Normal is 6-7 mm or less in diameter, or 10 mm or less post-cholecystectomy. Pancreas: Visualized portions of the pancreas are sonographically normal. Spleen: Spleen is normal in size and homogeneous in echotexture. Kidneys: Kidneys are normal in size and echotexture. Right kidney measures 11 cm long; left kidney measures 11.3 cm long. No hydronephrosis or nephrolithiasis. No solid masses. Aorta: Visualized aorta is normal in caliber at less than 3 cm. Iliacs: Proximal common iliac arteries are normal in caliber at less than 2.5 cm. IVC: Intrahepatic inferior vena cava is patent. Miscellaneous: No free abdominal fluid. IMPRESSION: The gallbladder demonstrates a normal sonographic appearance. No biliary dilatation is seen. Dictated by: Maximo Ribera M.D. on 07/01/2022 at 8:39 Approved by: Maximo Ribera M.D. on 07/01/2022 at 8:43
== END ==
PROVIDERS: PCP Family Medicine; Referring Provider Physician Assistant; Visit Provider Physician Assistant
DX: R10.11 Right upper quadrant pain (principal); R13.10 Dysphagia, unspecified
CPT/HCPCS: 76700

== ENCOUNTER → 2023-01-31 14:16 | Outpatient (CLI) | payer OTHER, SELFPAY ==
[2023-01-31 15:49] LABS: Add Manual Diff / Slide Review NO; Basophils Absolute Auto 100 /uL (0-100); Basophils Percent Auto 0.8 % (0-2); Eosinophils Absolute Auto 300 /uL (0-450); Eosinophils Percent Auto 3.3 % (2-4); Hematocrit 37.3 % (36-46); Hemoglobin 12.9 g/dL (12.0-16.0); Lymphocytes Absolute Auto 2000 /uL (1100-4500); Lymphocytes Percent Auto 26.6 % (25-40); Mean Corpuscular HGB Conc 34.4 % (30-36); Mean Corpuscular Hemoglobin 30.6 PG (26-34); Mean Corpuscular Volume 88.9 fL (80-100); Monocytes Absolute Auto 600 /uL (0-900); Monocytes Percent Auto 8.2 % (3-14); Neutrophils Absolute Auto 4700 /uL (1500-7000); Neutrophils Percent Auto 61.1 % (50-75); Platelet Count 212 X10^3/uL (150-400); Red Cell Distribution Width 12.9 % (11.6-14.8); White Blood Cell Count 7.6 X10^3/uL (4.5-11.0)
[2023-01-31 16:03] LABS: HEMOLYSIS < 15 (0-50)
[2023-01-31 16:08] LABS: HEMOLYSIS < 15 (0-50); Iron 109 ug/dL (37-170)
[2023-01-31 16:10] LABS: Alanine Aminotransferase 17 IU/L (<35); Albumin 4.1 g/dL (3.5-5.0); Albumin Globulin Ratio 1.3 (1.0-2.8); Alkaline Phosphatase 54 U/L (38-126); Aspartate Aminotransferase 22 IU/L (14-36); BUN Creatinine Ratio 20.7 (6-22); Bilirubin Total 0.5 mg/dL (0.2-1.3); Blood Urea Nitrogen 19 mg/dL (7-17); Carbon Dioxide 29 mmol/L (22-32); Chloride 102 mmol/L (98-107); Estimated Glomerular Filt Rate > 60 mL/min (>60); Globulin 3.1 g/dL (1.7-4.1); Glucose 78 mg/dL (70-100); Potassium 4.2 mmol/L (3.4-5.1); Sodium 137 mmol/L (137-145); Total Protein 7.2 g/dL (6.3-8.2)
[2023-01-31 16:18] LABS: Percent Iron Saturation 30 % (15-50); Total Iron Binding Capacity 365 ug/dL (265-497); Transferrin 259 mg/dL (206-381)
[2023-01-31 16:41] LABS: TSH w/ Reflex to FT4 0.29 uIU/mL (0.47-4.68)
[2023-01-31 16:44] LABS: Ferritin 22 ng/mL (6-137)
[2023-01-31 17:30] LABS: Free T4, Direct Thyroxine 1.17 ng/dL (0.78-2.19)
[2023-02-06 14:59] LABS: Vitamin B12 521 pg/mL (239-931)
== END ==
PROVIDERS: PCP Family Medicine; Referring Provider Physician Assistant; Visit Provider Physician Assistant
DX: M79.89 Other specified soft tissue disorders (principal); R53.83 Other fatigue
CPT/HCPCS: 36415; 80053; 82607; 82728; 83540; 83550; 84439; 84443; 85025

== ENCOUNTER → 2023-12-18 14:51 | Outpatient (CLI) | payer OTHER, SELFPAY ==
[2023-12-18 16:10] LABS: TSH w/ Reflex to FT4 0.29 uIU/mL (0.47-4.68)
[2023-12-18 16:45] LABS: Free T4, Direct Thyroxine 1.03 ng/dL (0.78-2.19)
[2023-12-18 17:56] LABS: Appearance Urine UA CLEAR; Bilirubin Urine UA NEGATIVE (NEGATIVE); Color Urine UA YELLOW; Glucose Urine UA NEGATIVE (Negative); Ketones Urine UA NEGATIVE (NEGATIVE); Leukocyte Esterase Urine UA NEGATIVE (NEGATIVE); Nitrite Urine UA NEGATIVE (Negative); Occult Blood Urine UA TRACE-INTACT (Negative); Protein Urine UA NEGATIVE (Negative); Urobilinogen Urine UA 0.2 E.U./dL (0.2)
[2023-12-18 18:07] LABS: Bacteria Urine Occasional (0-1); Culture Indicated Urine Cult Not Indicated; RBC Urine 0-1/HPF (0-5/HPF); Squamous Epithelial Cell Urine 0-1 /HPF (0-5/HPF); Urine Volume 10mL (spun); WBC Urine None Seen (0-5/HPF)
== END ==
PROVIDERS: PCP Family Medicine; Referring Provider Family Medicine; Visit Provider Family Medicine
DX: R79.89 Other specified abnormal findings of blood chemistry (principal); R35.89 Other polyuria
CPT/HCPCS: 36415; 81001; 84439; 84443

== ENCOUNTER → 2023-12-21 12:13 | Outpatient (CLI) | payer OTHER, SELFPAY ==
[2023-12-21 13:12] LABS: Hemoglobin A1C% w Est Avg Glu 5.3 % (4.0-6.0)
== END ==
PROVIDERS: PCP Family Medicine; Referring Provider Family Medicine; Visit Provider Family Medicine
DX: R35.89 Other polyuria (principal)
CPT/HCPCS: 83036

== ENCOUNTER → 2025-06-10 11:34 | Outpatient (CLI) | payer BC, SELFPAY ==
--- NOTE | 2025-06-10 12:52 | DI.RAD.S_ITS ---
PROCEDURE: XR CHEST 2V INDICATIONS: SoB TECHNIQUE: 2 views of the chest were acquired. COMPARISON: [facility], , CHEST 2 VIEW, 11/06/2014, 16:47. FINDINGS: Surgical changes and devices: None. Lungs and pleura: Lungs are clear. No pleural effusions or pneumothorax. Mediastinum: Mediastinal contours are normal. Heart size is normal. Bones and chest wall: No suspicious bony abnormalities. Soft tissues appear unremarkable. IMPRESSION: No acute cardiopulmonary abnormality is seen. Dictated by: Elsa Romero M.D. on 06/10/2025 at 14:55 Approved by: Elsa Romero M.D. on 06/10/2025 at 14:56
== END ==
PROVIDERS: PCP Family Medicine; Referring Provider Specialist; Visit Provider Specialist
DX: R06.02 Shortness of breath (principal)
CPT/HCPCS: 71046